=== PATIENT | male | born 1985 | race Caucasian/White ===

== ENCOUNTER 2022-10-11 12:33 | Emergency (ER) | payer BC ==
[~2022-10-11] VITALS: Ht 180.3 cm; Wt 74.8 kg
[2022-10-11 12:33] VITALS: BP 131/82
--- NOTE | 2022-10-11 12:33 | NUR ---
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
--- NOTE | 2022-10-11 13:18 | DIREP ---
PROCEDURE:XRAY FINGER-RT COMPARISON:None. INDICATIONS:RIGHT PINKY INJURY FINDINGS: BONES:A bony excrescence is seen to the dorsal aspect of the middle phalanx of the small finger. No fracture noted. JOINTS:Normal. SOFT TISSUES:Normal. OTHER:No additional findings. CONCLUSION:Bony excrescence to the dorsal aspect of the middle phalanx of the small finger. This may represent sequela of prior trauma or osteochondroma. No acute bony abnormality. Dictated by: Prudence Lindo M.D. on 10/11/2022 at 01:15 PM
--- NOTE | 2022-10-11 13:19 | ER.PDOC ---
General Chief Complaint: Extremities Stated Complaint: GENERAL Time seen by MD: 13:12 Source: patient Exam Limitations: no limitations History of Present Illness Initial Comments 27 yo M suffered laceration injury R fifth finger at DIP ~4-5 months ago at work, and afterward has had mallet finger droop. Area gets painful and inflamed sometimes. Occurred: other (months ago) Recent Injury: No Where: work Severity: mild, moderate Exacerbated By: movement of, exertion Relieved By: rest Quality: pain Prior symptoms/Treatment: Similar symptoms previous Allergies: Coded Allergies: No Known Allergies (Unverified , 10/11/22) Past Medical History Medical History: no pertinent history Surgical History: no surgical history Family History Significant Family History: no pertinent family hx Social History Smoking: cigarettes Alcohol Use: occassionally Drug Use: none Reviewed Nursing Reviewed: Vital Signs, Abn. Noted, Nursing Assessment Review of Systems Constitutional: no symptoms reported EENTM: no symptoms reported Respiratory: no symptoms reported Cardiovascular: no symptoms reported Gastrointestinal: no symptoms reported Genitourinary: no symptoms reported Musculoskeletal: see HPI Skin: no symptoms reported Psychiatric/Neurological: no symptoms reported All Other Systems: Reviewed and Negative Physical Exam General Appearance: alert, no distress Upper Extremity: limited ROM (obvious mallet finger droop R fifth finger. Some mild swelling around it, not suggestive of infection or effusion) Skin: color nml Vascular: no vascular compromise Neuro/Psych: motor nml Central Exam: oriented X3, CN's nml as tested Neck/Back: nml inspection Respiratory: breath sounds nml CVS: heart sounds nml Abdomen: non-tender (grossly benign) Results/Orders Results/Orders Orders - BRITNI WOOD MD Xr Finger Rt (10/11/22 12:55) Vital Signs Date Time Temp Pulse Resp B/P (MAP) Pulse Ox O2 Delivery O2 Flow Rate FiO2 10/11/22 13:28 97.6 66 18 131/82 (98) 99 Room Air* 0 21 10/11/22 12:33 97.6 73 18 131/82 (98) 99 Room Air* 0 21 10/11/22 12:33 97.6 73 18 99 10/11/22 12:33 97.6 73 18 131/82 (98) 99 Room Air* 0 21 10/11/22 12:33 97.6 73 18 Progress Progress I can't say if this is still in a timeframe for surgical repair or not, but I will recommend for orthopedics evaluation. No other action is appropriate/will be helpful at this juncture. EKG/XRAY/CT/US XRAY: hand XRAY Comments: see report. nothing acute. ER DEPART Departure Time of Disposition: 13:25 Disposition: 01 HOME / SELF CARE / HOMELESS Impression: Primary Impression: Mallet deformity of right little finger Condition: Stable Patient Instructions: Mallet Finger Referrals: PCP,UNKNOWN (PCP) PRIMARY CARE PROVIDER KALEY GILLIAM MD Additional Instructions: Contact Dr. Gilliam's office (he can see our x-rays in his clinic) and ask his staff if he can repair a Mallet Finger. If he cannot, seek care from a hand specialist, which will be either a plastic or orthopedic surgeon; the closest likely place to find one will be in [place], or failing that, [place]. Use ibuprofen as needed for pain and swelling. Duration or Time Spent with Pa: 10 BRITNI WOOD MD Oct 11, 2022 13:18
[2022-10-11 13:28] VITALS: BP 131/82
== END 2022-10-11 13:37 | disposition home or self-care (01) ==
LOC: ER 12:33
DX: M20.011 Mallet finger of right finger(s) (principal); F17.210 Nicotine dependence, cigarettes, uncomplicated
CPT/HCPCS: 99283; 73140-RT